=== PATIENT | female | born 1985 | race African-American/Black ===

== ENCOUNTER 2019-04-24 20:19 | Emergency (ER) | payer MEDICAID ==
[~2019-04-24] VITALS: Ht 157.5 cm; Wt 91.0 kg
[2019-04-25] MEDS ORDERED: TRAMADOL 50MG TABLET PO ONE (02:30)
[2019-04-25 04:21] VITALS: BP 110/72
== END 2019-04-25 04:24 | disposition home or self-care (01) ==
LOC: ER 20:19
DX: M25.552 Pain in left hip (principal); G89.29 Other chronic pain; E11.9 Type 2 diabetes mellitus without complications; E78.00 Pure hypercholesterolemia, unspecified; I10 Essential (primary) hypertension; Z98.890 Other specified postprocedural states; Z87.828 Personal history of other (healed) physical injury and trauma
CPT/HCPCS: 73502; 99283

== ENCOUNTER 2020-10-19 13:31 | Emergency (ER) | payer MEDICAID ==
[~2020-10-19] VITALS: Ht 170.2 cm; Wt 136.0 kg
[2020-10-19] MEDS ORDERED: NAPR-681 MT (16:51)
[2020-10-19] MEDS ORDERED: T3 PO (16:51)
[2020-10-19] MEDS ORDERED: HYDROCODONE/ACETAMINOPHEN 5/325MG TABLET PO ONE (17:00)
[2020-10-19 17:16] VITALS: BP 102/67
== END 2020-10-19 17:19 | disposition home or self-care (01) ==
LOC: ER 13:40
DX: S83.92XA Sprain of unspecified site of left knee, initial encounter (principal); S70.02XA Contusion of left hip, initial encounter; E78.00 Pure hypercholesterolemia, unspecified; I10 Essential (primary) hypertension; E11.9 Type 2 diabetes mellitus without complications; Z98.890 Other specified postprocedural states; Z79.899 Other long term (current) drug therapy; W18.39XA Other fall on same level, initial encounter; Y93.89 Activity, other specified; Y92.89 Other specified places as the place of occurrence of the external cause; Y99.8 Other external cause status
CPT/HCPCS: 72100; 73502; 81025; 99284